=== PATIENT | female | born 1940 | race Caucasian/White ===

== ENCOUNTER 2019-01-14 17:09 | Inpatient (IN) | payer MEDICARE ==
[~2019-01-14] VITALS: Ht 172.7 cm; Wt 62.5 kg
--- NOTE | 2019-01-14 17:44 | NUR ---
ASSUMED CARE OF PATIENT. PATIENT RESTING IN ROOM. NO ACUTE DISTRES NOTED. DR BENJAMIN IN ROOM.
[2019-01-14] MEDS ORDERED: ASPIRIN 81 MG TABLET CHEW ONE (17:59)
--- NOTE | 2019-01-14 18:09 | NUR ---
MRI form faxed
--- NOTE | 2019-01-14 18:17 | NUR ---
report given to CLAIR Sal for lunch
[2019-01-14 18:18] LABS: BASOPHILS # (AUTO) 0.06 x10^3/uL (0-0.1); BASOPHILS % (AUTO) 1 % (0-1); EOSINOPHILS % (AUTO) 1 % (1-7); LYMPHOCYTES # (AUTO) 3.19 x10^3/uL (1-3.4); LYMPHOCYTES % (AUTO) 30 % (22-44); MD NO; MEAN CORPUSCULAR HEMOGLOBIN 30.8 pg (27.0-34.8); MEAN CORPUSCULAR HGB CONC 33.5 g/dL (32.4-35.8); MEAN CORPUSCULAR VOLUME 91.9 fL (80-100); MEAN PLATELET VOLUME 7.4 fL (7.4-10.4); MONOCYTES # (AUTO) 0.72 x10^3/uL (0.2-0.8); MONOCYTES % (AUTO) 7 % (2-9); NEUTROPHILS # (AUTO) 6.44 x10^3/uL (1.8-6.8); NEUTROPHILS % (AUTO) 61 % (42-75); PLATELET COUNT 346 x10^3/uL (130-400); RED BLOOD COUNT 5.07 x10^6/uL (3.82-5.3); RED CELL DISTRIBUTION WIDTH 12.5 % (9.6-15.2)
--- NOTE | 2019-01-14 18:26 | NUR ---
BREAK RN: PT NOT IN ROOM AT THIS TIME.
[2019-01-14 18:30] LABS: ALANINE AMINOTRANSFERASE 18 U/L (12-78); ALBUMIN 3.6 g/dL (3.4-5.0); ANION GAP 6 mmol/L (5-15); CALCIUM 8.7 mg/dL (8.5-10.1); CHLORIDE 112 mmol/L (98-107); CREATININE 1.03 mg/dL (0.55-1.02)
[2019-01-14 18:35] LABS: ALKALINE PHOSPHATASE 76 U/L (45-117); BILIRUBIN,TOTAL 1.2 mg/dL (0.2-1.0); T4 (THYROXINE) 9.8 mcg/dL (4.8-13.9); TOTAL PROTEIN 8.3 g/dL (6.4-8.2); TROPONIN I < 0.015 ng/mL (0.000-0.045)
--- NOTE | 2019-01-14 18:41 | NUR ---
REPORT TO DENAE SELF
[2019-01-14] MEDS ORDERED: SODIUM CHLORIDE FLUSH 10ML SYR IVF ONE (19:00)
[2019-01-14] MEDS ORDERED: ASPIRIN 81 MG TABLET CHEW PO ONE (19:00)
--- NOTE | 2019-01-14 19:01 | NUR ---
PT REMAINS IN MRI AT THIS TIME
--- NOTE | 2019-01-14 20:09 | NUR ---
PT RETURNED FROM MRI. PT AWAKE AND EATING. PT DENIES CURRENT NEEDS. PT AWARE A UA IS NEEDED.
[2019-01-14] MEDS ORDERED: ONDANSETRON ODT 4 MG PO PRN (21:00)
[2019-01-14] MEDS ORDERED: ACETAMINOPHEN 325 MG TABLET PO PRN (21:00)
[2019-01-14] MEDS: SODIUM CHLORIDE FLUSH 10ML SYR IVF SCH (21:00)
[2019-01-14] MEDS ORDERED: BISACODYL 10 MG SUPP PR PRN (21:00)
[2019-01-14] MEDS ORDERED: MORPHINE SULFATE 4 MG/ML, 1ML IVPush PRN (21:00)
[2019-01-14] MEDS ORDERED: POLYETHYLENE GLYCOL 17 GM PACKET PO PRN (21:00)
[2019-01-14] MEDS ORDERED: NITROGLYCERIN 0.4 MG BOTTLE (25 TABS) SL PRN (21:00)
[2019-01-14 21:24] VITALS: BP 128/84
[2019-01-14] MEDS: HEPARIN 5,000 UNITS/ML, 1ML SQ SCH (21:40)
[2019-01-15 03:59] VITALS: BP 163/85
[2019-01-15] MEDS: ASPIRIN 81 MG TABLET EC PO SCH (04:25)
[2019-01-15] MEDS: HEPARIN 5,000 UNITS/ML, 1ML SQ SCH ×3 (06:00→21:07)
[2019-01-15 08:12] LABS: ALANINE AMINOTRANSFERASE 18 U/L (12-78); ALBUMIN 3.8 g/dL (3.4-5.0); ANION GAP 6 mmol/L (5-15); CALCIUM 8.6 mg/dL (8.5-10.1); CHLORIDE 112 mmol/L (98-107)
[2019-01-15 08:17] LABS: ALKALINE PHOSPHATASE 77 U/L (45-117); BILIRUBIN,TOTAL 1.3 mg/dL (0.2-1.0); TOTAL PROTEIN 8.7 g/dL (6.4-8.2); TROPONIN I < 0.015 ng/mL (0.000-0.045)
[2019-01-15 08:20] LABS: BASOPHILS # (AUTO) 0.05 x10^3/uL (0-0.1); BASOPHILS % (AUTO) 1 % (0-1); EOSINOPHILS # (AUTO) 0.17 x10^3/uL (0-0.4); EOSINOPHILS % (AUTO) 2 % (1-7); LYMPHOCYTES # (AUTO) 4.31 x10^3/uL (1-3.4); LYMPHOCYTES % (AUTO) 44 % (22-44); MD NO; MEAN CORPUSCULAR HEMOGLOBIN 30.3 pg (27.0-34.8); MEAN CORPUSCULAR VOLUME 91.9 fL (80-100); MEAN PLATELET VOLUME 7.4 fL (7.4-10.4); MONOCYTES # (AUTO) 0.68 x10^3/uL (0.2-0.8); MONOCYTES % (AUTO) 7 % (2-9); NEUTROPHILS # (AUTO) 4.62 x10^3/uL (1.8-6.8); NEUTROPHILS % (AUTO) 47 % (42-75); PLATELET COUNT 351 x10^3/uL (130-400); RED BLOOD COUNT 5.31 x10^6/uL (3.82-5.3)
[2019-01-15] MEDS: SODIUM CHLORIDE FLUSH 10ML SYR IVF SCH ×2 (09:00→21:00)
[2019-01-15] MEDS: SENNA/DOCUSATE TABLET PO SCH (09:10)
[2019-01-15 09:48] VITALS: BP 168/95
[2019-01-15] MEDS ORDERED: REGADENOSON 0.4 MG/5 ML SYRINGE ONE (10:17)
[2019-01-15 12:59] VITALS: BP 136/84
[2019-01-15] MEDS ORDERED: LISI10TA2 PO (16:44)
[2019-01-15 19:17] VITALS: BP 149/78
[2019-01-16 02:00] VITALS: BP 138/80
[2019-01-16] MEDS: HEPARIN 5,000 UNITS/ML, 1ML SQ SCH (06:00)
[2019-01-16] MEDS: ASPIRIN 81 MG TABLET EC PO SCH (06:00)
[2019-01-16] MEDS: SODIUM CHLORIDE FLUSH 10ML SYR IVF SCH (07:54)
[2019-01-16] MEDS: SENNA/DOCUSATE TABLET PO SCH (08:12)
[2019-01-16 08:48] VITALS: BP 148/88
== END 2019-01-16 12:30 | disposition home or self-care (01) | DRG 312 ==
LOC: ED 20:26 → EDIP 20:56 → 5SO 21:07
PROVIDERS: ADMIT Family Medicine; ATTEND Family Medicine
DX: R55 Syncope and collapse (principal); R42 Dizziness and giddiness; R07.89 Other chest pain; I10 Essential (primary) hypertension; Z90.49 Acquired absence of other specified parts of digestive tract; Z82.49 Family history of ischemic heart disease and other diseases of the circulatory system
CPT/HCPCS: 36415; 70547; 70551; 71045; 78452; 80053; 83735; 84436; 84443; 84484; 85025; 85379; 93005; 93017; 93306; 93880; 99285; G0378; J2785; A9502; C9898